=== PATIENT | male | born 1955 | race Caucasian/White ===

== ENCOUNTER 2018-10-17 08:37 | Outpatient (CLI) | payer BC ==
--- NOTE | 2018-10-17 12:16 | CT ---
ABDOMEN AND PELVIC CT SCAN WITH AND WITHOUT IV CONTRAST: HISTORY: Elevated PSA, enlarged prostate gland, microscopic hematuria, incomplete emptying of the bladder. FINDINGS: The lung bases appear clear. The liver, gallbladder, pancreas, spleen, and adrenal glands are unrema rkable. No evidence for renal calculus or acute obstruction. There is a 0.4 cm diameter focal ar ea of minimal increased attenuation in the medial aspect of the left upper mid kidney which does not have the appearance of a calculus and could possibly represent a very small hemorrhagic cyst. There are several left renal parapelvic cysts. No solid enhancing renal mass. Small posterior scar involv ing the right kidney. Urinary bladder appears unremarkable. Prostate gland measures approximately 4 .6 x 5.1 cm. Normal-appearing appendix. No evidence for other significant acute process in the abdo men or pelvis. IMPRESSION: Left renal parapelvic cysts. No renal calculus or acute obstruction. Very small left renal hemor rhagic cyst. Moderate-sized prostate gland. No evidence for other significant acute process. POS: [facility]
== END 2018-10-17 08:38 | disposition home or self-care (01) ==
LOC: SCSCT 08:37
PROVIDERS: ATTEND Urology
DX: R31.29 Other microscopic hematuria (principal); R33.9 Retention of urine, unspecified; Z87.438 Personal history of other diseases of male genital organs; N28.1 Cyst of kidney, acquired
CPT/HCPCS: 74178; 82565

== ENCOUNTER 2019-02-25 09:03 | Outpatient (CLI) | payer BC ==
--- NOTE | 2019-02-25 10:32 | RAD ---
Exam: IVP: HISTORY: Renal cyst, microhematuria COMPARISON: Abdomen and pelvic CT, 10/17/2018 FINDINGS: Pricer film demonstrates no overt opaque calculus. Following contrast injection there is chronic bilateral equal excretion. Visualized renal outlines appear intact. There is some splaying of left-sided renal calyces evidence for bilateral renal parapelvic cysts as seen on prior CT. No evidence for hydronephrosis. No overt obstructing calculus. The bladder appears unremarkable with a small post void residual. IMPRESSION: Some splaying of left renal calyces evidence for left renal parapelvic cysts based on prior CT. No ev idence for obstruction. Small post void residual.
[2019-02-25] MEDS ORDERED: Iopamidol 300 61% 100 ML VIAL FS ONE (20:52)
== END 2019-02-25 09:04 | disposition home or self-care (01) ==
LOC: RAD 09:03
PROVIDERS: ATTEND Urology
DX: N40.1 Benign prostatic hyperplasia with lower urinary tract symptoms (principal); R31.29 Other microscopic hematuria; N28.1 Cyst of kidney, acquired
CPT/HCPCS: 74410; Q9967

== ENCOUNTER 2019-03-04 10:00 | Outpatient (CLI) | payer BC ==
[2019-03-04 11:17] LABS: Hemoglobin 15.5 g/dL (14.0-18.0); Mean Corpuscular HGB CONC 33.7 g/dL (32.0-36.0); Mean Corpuscular Volume 91.9 fL (78.0-98.0); Mean Platelet Volume 7.1 fL (7.4-10.4); Platelet Count 250 thou/uL (130-400); RBC Distribution Width 11.6 % (11.5-14.5); Red Blood Cell (RBC) Count 4.99 mill/uL (4.70-6.10); White Blood Cell (WBC) Count 7.6 thou/uL (4.8-10.8)
[2019-03-04 11:23] LABS: PTT 28.6 SEC (22.9-36.1); Prothrombin Time 12.8 SEC (12.0-14.7)
[2019-03-04 11:35] LABS: Bacteria/HPF None Seen HPF (None Seen); Bilirubin Negative (Negative); Blood, Urine Negative (Negative); Clarity Clear (Clear); Glucose, Urine (Dipstick) Normal (Negative); Leukocyte Negative Leu/uL (Negative); Nitrite Negative (Negative); Protein, Urine (Dipstick) Negative (Neg-Trace); RBC/HPF 0-3 HPF (0-3); Squamous Epithelial 0-3 HPF (0-3); Urobilinogen Normal mg/dL (Less than 2); WBC/HPF 0-3 HPF (0-3)
[2019-03-04 11:36] LABS: Anion Gap 10 mmol/L (10-20); BUN (Urea Nitrogen) 13 mg/dL (8.4-25.7); Calc. Creatinine Clearance 0 mL/min (70-130); Calcium 9.7 mg/dL (7.8-10.44); Carbon Dioxide 29 mmol/L (23-31); Chloride 102 mmol/L (98-107); Estimated GFR-MDRD 77; Glucose 122 mg/dL (80-115); Potassium 4.5 mmol/L (3.5-5.1); Sodium 136 mmol/L (136-145)
--- NOTE | 2019-03-05 23:23 | EKG ---
Test Reason : Blood Pressure : / mmHG Vent. Rate : 071 BPM Atrial Rate : 071 BPM P-R Int : 154 ms QRS Dur : 142 ms QT Int : 414 ms P-R-T Axes : 057 057 -10 degrees QTc Int : 449 ms Normal sinus rhythm Left bundle branch block Abnormal ECG No previous ECGs available Confirmed by Anibal ASHLEY ([id number]) on 03/05/2019 11:23:09 PM Referred By: APRIL Confirmed By:Anibal ASHLEY
== END 2019-03-04 10:01 | disposition home or self-care (01) ==
LOC: LABBT 10:00
PROVIDERS: ATTEND Urology
DX: Z01.818 Encounter for other preprocedural examination (principal); N40.1 Benign prostatic hyperplasia with lower urinary tract symptoms; R97.20 Elevated prostate specific antigen [PSA]; R33.9 Retention of urine, unspecified; R31.29 Other microscopic hematuria; Z87.438 Personal history of other diseases of male genital organs; N28.1 Cyst of kidney, acquired; Z87.898 Personal history of other specified conditions
CPT/HCPCS: 80048; 81001; 85027; 85610; 85730; 87086; 93005; 93010

== ENCOUNTER 2019-03-18 07:16 | Day surgery (SDC) | payer BC ==
[2019-03-04 10:22] VITALS: BMI 26.5
[2019-03-18] MEDS ORDERED: Levofloxacin 500 mg/D5W 100 ml Premix Bag ONE (09:06)
[2019-03-18] MEDS ORDERED: Fentanyl 100 MCG/2 ML VIAL ONE (09:32)
[2019-03-18] MEDS ORDERED: Phenazopyridine HCl 97.5 MG TABLET ONE (10:41)
--- NOTE | 2019-03-18 12:07 | OP ---
DATE OF PROCEDURE: 03/18/2019 PRIMARY CARE PHYSICIAN: Dr. To. PREOPERATIVE DIAGNOSIS: A 63-year-old male with history of benign prostatic hypertrophy, on dual medical therapy, with history of incomplete emptying. POSTOPERATIVE DIAGNOSIS: A 63-year-old male with history of benign prostatic hypertrophy, on dual medical therapy, with history of incomplete emptying. PROCEDURES PERFORMED: 1. Cystoscopy. 2. UroLift implant x6. 3. Passive dilatation of bulbar urethral stricture. ANESTHESIA: LMA. COMPLICATIONS: None apparent. DISPOSITION: To recovery room in stable condition. INTRAOPERATIVE FINDINGS: Bilobar hyperplasia of the prostate. UOs identified about 2 to 3 mm proximal to the bladder neck, incidental wide caliber nonobstructing bulbar stricture about 16/18-[place] caliber, which resolved with passage of scope. ESTIMATED BLOOD LOSS: Minimal. COMPLICATIONS: None apparent. INDICATIONS FOR PROCEDURE AND HISTORY: Mr. Callahan is a pleasant 63-year-old male, who presents with BPH symptoms, incomplete emptying. He has been on dual medical therapy and desires to proceed with UroLift. He underwent staging with cysto, TRUS volume study. IVP was obtained as UOs were difficult to identify on flexible cystoscopy. On today's exam, I am able to visualize the UOs with the rigid cystoscope. DESCRIPTION OF PROCEDURE: After an informed consent was signed, the patient was taken to the operating room and placed in a dorsal lithotomy position with the genital area prepped and draped in the usual surgical sterile fashion. A 22- [place] cystoscope was utilized for cystoscopy, although I did not appreciate a urethral stricture with flexible cystoscope, on today's exam, he has a wide caliber 16/18-[place] bulbar stricture. This was passively dilated with the passage of the scope. Bilobar hyperplasia of the prostate with some trigonal elevation of the prostatic hypertrophy is noted. I used a 30-degree lens and I was able to visualize the UOs. They were somewhat patulous, seen about 2 to 3 mm proximal to the bladder neck. There was no intravesical median lobe component. At this time, we transitioned to a 20-[place] UroLift 0-degree lens and we placed the UroLift implant x6 total. The initial more proximal implants were kept a pot about 1.5 cm proximal to the bladder neck. Care was taken to avoid bladder neck deployment. We subsequently placed a total of 6 implants, which demonstrated very nice anterior channel with resolution of his obstructive component. I did re-stage the bladder, which demonstrated no evidence of foreign body in the bladder neck region or the bladder mucosa. Restaging cystoscopy demonstrated resolution of his bulbar stricture. Therefore, I did not leave an indwelling H[place] catheter. He will be monitored for voiding trial in the recovery room. If able to void completely, we will discharge the patient without indwelling Hargrove catheter. He will continue his both BPH medications, ciprofloxacin 5 days provided Azo when necessary Job ID: [id number] [facility]
== END 2019-03-18 14:11 | disposition home or self-care (01) ==
LOC: SDC 07:16
PROVIDERS: ATTEND Urology
PROC: 0T7D8DZ Dilation of Urethra with Intraluminal Device, Via Natural or Artificial Opening Endoscopic (ICD-10-PCS; principal; 2019-03-18)
DX: N40.1 Benign prostatic hyperplasia with lower urinary tract symptoms (principal); N13.8 Other obstructive and reflux uropathy; N35.912 Unspecified bulbous urethral stricture, male; I10 Essential (primary) hypertension; Z79.82 Long term (current) use of aspirin; Z79.899 Other long term (current) drug therapy; Z87.438 Personal history of other diseases of male genital organs; Z87.898 Personal history of other specified conditions
CPT/HCPCS: C1889; J1956; J3010